=== PATIENT | female | born 1975 | race Caucasian/White ===

== ENCOUNTER 2017-03-15 09:25 | Emergency (ER) | payer OTHER ==
--- NOTE | ~2017-03-15 | CR260 ---
[facility]. [facility] A Service of [facility] & [facility] RADIOLOGY TEXT RESULTS PATIENT: JOYCE CHRISTOPHER LOCATION: SED : 71 UNIT #: [id number] AGE: [address]: Darius Quijano MD SEX: F ORDER DR: [id number] [place] [id number] E MR#: [id number] Acc #: [id number] NAME: JOYCE CHRISTOPHER : 1975 SEX: F STUDY DATE/TIME: 03/15/2017 9:47 UNIT: SED ROOM: STUDY DESCRIPTION: CR Toe 2 Views 5Th Lt Attending Physician: Darius Quijano M.D. Ordering Physician: Darius Quijano M.D. Primary Care Physician: No Primary Care Physician MEDICAL IMAGING REPORT This report is preliminary unless electronic signature is present. EXAM Left fifth toe, 3 views. INDICATIONS Minus pain and fifth toe beginning today after injuring it. COMPARISON No comparisons. FINDINGS There is no definite fracture. There is some soft tissue swelling of the fifth toe. Alignment is normal. IMPRESSION No definite fracture. Soft tissue swelling of the fifth toe. Dictated by... Fradny Hawk M.D. THIS IS AN ELECTRONICALLY VERIFIED REPORT Frandy Hawk M.D. at 03/16/2017 7:27 AM ELTON/jaimie TD: 03/15/2017 20:32 JOB #: [id number] MEDICAL IMAGING REPORT Page 1 of 1
== END 2017-03-15 10:35 | disposition home or self-care (01) ==
LOC: SED 09:25
DX: S91.115A Laceration without foreign body of left lesser toe(s) without damage to nail, initial encounter (principal); F17.210 Nicotine dependence, cigarettes, uncomplicated; Z88.0 Allergy status to penicillin; Z88.2 Allergy status to sulfonamides; Z88.5 Allergy status to narcotic agent; Z88.1 Allergy status to other antibiotic agents; Z23 Encounter for immunization; W22.8XXA Striking against or struck by other objects, initial encounter; Y92.009 Unspecified place in unspecified non-institutional (private) residence as the place of occurrence of the external cause
CPT/HCPCS: 12001; 73660; 90471; 90715; 99283